=== PATIENT | female | born 1980 | race Caucasian/White ===

== ENCOUNTER 2019-06-28 11:06 | Inpatient (IN) | payer OTHER, SELFPAY | END 2019-06-30 13:10 | disposition home or self-care (01) | DRG 195 | PROVIDERS: Admitting Provider Internal Medicine; Emergency Provider Emergency Medicine; PCP Family Medicine; Visit Provider Internal Medicine | DX: J18.9 Pneumonia, unspecified organism (principal); T78.40XA Allergy, unspecified, initial encounter; L50.9 Urticaria, unspecified; E11.65 Type 2 diabetes mellitus with hyperglycemia; T38.0X5A Adverse effect of glucocorticoids and synthetic analogues, initial encounter; G47.00 Insomnia, unspecified; Z87.891 Personal history of nicotine dependence | CPT/HCPCS: 36415; 71046; 80048; 85025; 85610; 85730; 93005; 94640; 96361; 96365; 96372; 96374; 96375; 96376; 99285; A9270; G0378; J1200; J1650; J1956; J2930; J7120 ==

== ENCOUNTER → 2020-12-02 13:24 | Outpatient (CLI) | payer OTHER, SELFPAY ==
--- NOTE | ~2020-12-02 | MM_ITS ---
EXAMINATION: MM screening [facility] BI w alma HISTORY: Screening mammogram TECHNIQUE: Craniocaudal and mediolateral oblique 3-D tomosynthesis images were obtained and synthetic 2-D images were generated. CAD analysis was submitted and interpreted. COMPARISON: 07/29/2019 BREAST PARENCHYMAL COMPOSITION: The breasts are heterogeneously dense, which may obscure small masses . FINDINGS: There is no evidence of suspicious mass, calcification, or architectural distortion to sugg est malignancy in either breast. There has been no suspicious interval change. IMPRESSION: 1. No mammographic evidence of malignancy. 2. Recommend routine screening mammography in one year. BI-RADS Category 1: Negative Reviewed, dictated and finalized at location A.
== END ==
PROVIDERS: Visit Provider Obstetrics & Gynecology
DX: Z12.31 Encounter for screening mammogram for malignant neoplasm of breast (principal)
CPT/HCPCS: 77063; 77067

== ENCOUNTER 2021-10-05 08:49 | Emergency (ER) | payer OTHER, SELFPAY ==
[2021-10-05 08:56] VITALS: BP 139/87; PULSE 91; RESP 16; TEMP 37.7; O2SAT 99
--- NOTE | 2021-10-05 09:21 | ED.URI ---
HPI - URI/Sore Throat General Chief Complaint: Upper Respiratory Infection Stated Complaint: Cough/Chest Congestion Source: patient and RN notes reviewed History of Present Illness HPI Narrative: This is a 41-year-old female who presented to urgent care with complaints of a persistent cough, headache, nasal pressure, chest congestion that developed approximately 2 weeks ago. Patient notes that she has previously had a diagnosis of bronchitis and was given antibiotics with improvement. Today she is here to get tested for Covid. Patient negative for Covid she will be treated for bronchitis. The patient denies SOB, CP, palpitation, extremity numbness, lightheadedness, dizziness, constipation, diarrhea, chills, or fever. Related Data Home Medications Medication Instructions Recorded Confirmed estradiol-norethindrone acet 1 1 tablet PO DAILY 11/04/19 10/05/21 mg-0.5 mg tablet vortioxetine 5 mg tablet 5 mg PO DAILY 11/04/19 10/05/21 fexofenadine [Allergy Relief 180 mg PO DAILY 10/05/21 10/05/21 (fexofenadine)] Allergies Allergy/AdvReac Type Severity Reaction Status Date / Time Influenza Virus Vaccines Allergy Severe DIFFICULTY Verified 10/05/21 09:22 BREATHING Review of Systems Review of Systems: A 14 organ system Review of Systems was performed and pertinent positives included in the HPI, otherwise remaining ROS is negative. REPLACED BY [facility] Family History Family History Father Family history of emphysema Family history of mental disorder Family history of alcoholism Family history of arthritis Family history of chronic obstructive pulmonary disease Family history of atrial fibrillation Mother Family history of osteoporosis Family history of migraine headaches Hypertension Grandparent Cerebrovascular accident Family history of malignant neoplasm Social History Social History Smoking status: Former smoker Alcohol intake: current Exam Narrative: GENERAL: This is a well-nourished, well-developed patient, in no apparent distress. HEAD: normocephalic, atraumatic. EYES: PERRL. Sclera clear/white. Vision is grossly intact. EARS: External ears normal, auditory canals clear and without drainage, TMs normal without perforation. Hearing grossly intact. NOSE: External nose normal with no obvious nasal discharge, nares without redness, no rhinorrhea. THROAT: Mucous membranes moist, posterior pharynx clear. NECK: Neck supple, non-tender without lymphadenopathy, masses or thyromegaly. CARDIOVASCULAR: Regular rate and rhythm without murmurs, gallops, or rubs. RESPIRATORY: Clear to auscultation. Breath sounds equal bilaterally. No wheezes, rales, or rhonchi. GASTROINTESTINAL: Abdomen soft, non-tender, nondistended. Bowel sounds are active. No hepato-splenomegaly, or palpable masses. No guarding. SKIN: warm, intact with no suspicious lesions or rash, good texture and turgor. NEURO: awake, alert, and oriented to person, place and time. There were no obvious focal neurologic abnormalities. Steady gait EXTREMITIES: Normal range of motion. No edema. No calf tenderness. Negative Homans sign bilaterally. BACK: Nontender without deformity or crepitance. No flank tenderness. Course Course Emergency Course: Patient was discharged with Augmentin x10 days, Tessalon Perles, guaifenesin and Claritin with albuterol inhaler. Level of Care: Express Care Visit Vital Signs Vital signs: Vital Signs Temperature 99.9 F H 10/05/21 08:56 Pulse Rate 91 10/05/21 08:56 Respiratory Rate 16 10/05/21 08:56 Blood Pressure 139/87 10/05/21 08:56 Pulse Oximetry 99 10/05/21 08:56 Temperature 99.9 F H 10/05/21 08:56 Pulse Rate 91 10/05/21 08:56 Respiratory Rate 16 10/05/21 08:56 Blood Pressure 139/87 10/05/21 08:56 Pulse Oximetry 99 10/05/21 08:56 MDM - URI/Sore Throat Differential Diagnosi
== END 2021-10-05 09:45 | disposition home or self-care (01) ==
PROVIDERS: Emergency Provider Nurse Practitioner
DX: J40 Bronchitis, not specified as acute or chronic (principal); Z20.822 Contact with and (suspected) exposure to COVID-19; Z87.891 Personal history of nicotine dependence
CPT/HCPCS: 87426; 99213; C9803; G0463

== ENCOUNTER → 2022-06-06 12:28 | Outpatient (CLI) | payer OTHER, SELFPAY ==
--- NOTE | ~2022-06-06 | MM_ITS ---
EXAMINATION: MM screening [facility] BI w alma HISTORY: Screening mammogram TECHNIQUE: Craniocaudal and mediolateral oblique 3-D tomosynthesis images were obtained and synthetic 2-D images were generated. CAD analysis was submitted and interpreted. COMPARISON: 12/02/2020, 07/29/2019 BREAST PARENCHYMAL COMPOSITION: The breasts are heterogeneously dense, which may obscure small masses . FINDINGS: No suspicious mass, calcification, or architectural distortion are identified in either natacha ast to suggest malignancy. There has been no suspicious interval change. IMPRESSION: 1. No mammographic evidence of malignancy. 2. Recommend routine screening mammography in one year. BI-RADS Category 1: Negative Reviewed, dictated and finalized at location A.
== END ==
PROVIDERS: PCP Family Medicine Sports Medicine; Visit Provider Obstetrics & Gynecology
DX: Z12.31 Encounter for screening mammogram for malignant neoplasm of breast (principal)
CPT/HCPCS: 77063; 77067

== ENCOUNTER 2022-06-08 08:12 | Emergency (ER) | payer OTHER, SELFPAY ==
[2022-06-08 08:25] VITALS: BP 141/86; PULSE 74; RESP 20; TEMP 37.2; O2SAT 99
--- NOTE | 2022-06-08 08:26 | ED.URI ---
HPI - URI/Sore Throat General Chief Complaint: Upper Respiratory Infection Stated Complaint: Sore Throat,Multiple Complaints Time Seen by Provider: 06/08/22 08:20 Source: patient, RN notes reviewed and old records reviewed Mode of arrival: ambulatory Limitations: no limitations History of Present Illness HPI Narrative: 42-year-old female presents to the [facility] with complaints of sore throat, cough, sinus congestion for 2 weeks. Has taken allergy medication and Benadryl at night with minimal relief. Reports is home sick as well. Denies fevers. No chest pain or abdominal pain. Related Data Home Medications Medication Instructions Recorded Confirmed estradiol-norethindrone acet 1 1 tablet PO DAILY 11/04/19 10/05/21 mg-0.5 mg tablet vortioxetine 5 mg tablet 5 mg PO DAILY 11/04/19 10/05/21 (Trintellix) fexofenadine 180 mg tablet 180 mg PO DAILY 10/05/21 10/05/21 (Allergy Relief (fexofenadine)) vortioxetine 10 mg tablet mg 06/08/22 (Trintellix) Allergies Allergy/AdvReac Type Severity Reaction Status Date / Time Influenza Virus Vaccines Allergy Severe DIFFICULTY Verified 10/05/21 09:22 BREATHING Review of Systems Review of Systems: All systems reviewed & are unremarkable except as noted in HPI and below Constitutional: Constitutional: Reports no additional constitutional complaints, Denies chills and Denies fever(s) Eyes: Eyes: Reports no additional eye complaints ENT: Reports as per HPI Cardiovascular: Cardiovascular: Reports no additional cardiovascular complaints Respiratory: Respiratory: Reports as per HPI, Reports chest congestion, Reports cough, Denies dyspnea and Denies wheezing Gastrointestinal: Gastrointestinal: Reports no additional gastrointestinal complaints Musculoskeletal: Musculoskeletal: Reports no additional musculoskeletal complaints Integumentary/Breasts: Skin/Breast: Reports system reviewed and no additional complaints, except as docu Neurologic: Reports system reviewed and no additional complaints, except as documented Psychiatric: Psychiatric: Reports no additional psychiatric complaints Allergic/Immunologic: Allergic/Immunologic: Reports no additional allergic/immunologic complaints [facility] Family History Family History Father Family history of emphysema Family history of mental disorder Family history of alcoholism Family history of arthritis Family history of chronic obstructive pulmonary disease Family history of atrial fibrillation Mother Family history of osteoporosis Family history of migraine headaches Hypertension Grandparent Cerebrovascular accident Family history of malignant neoplasm Social History Social History Smoking status: Former smoker Alcohol intake: current Comments At the time of my signature, I reviewed and agree with the nursing past medical, surgical, social, and family history. There is no relevant family history pertinent to the patient complaint. Exam Const: General: healthy appearing, no acute distress, alert and well nourished Nutritional Appearance: well nourished Orientation/consciousness: patient oriented x3 Limitations: no limitations HENMT: Head: normal to inspection Ears: external ears normal, TM's normal bilaterally and EAC's normal Face/Nose/Sinus: Normal external nose present and Normal nares present Face and sinus: normal facial exam Mouth: Yes Normal oral and palatal mucosa present, Yes lip normal and Yes moist mucous membranes Throat: posterior oropharynx normal and uvula midline Eyes: General: appearance normal, both eyes and all related structures Conjunctivae: conjunctivae normal Pupils: Equal, round and reactive pupils present Neck: Neck: normal visual inspection, no lymphadenopathy and no meningeal signs Chest: Chest palpation & inspection: normal inspection of the chest R
== END 2022-06-08 08:30 | disposition home or self-care (01) ==
PROVIDERS: Emergency Provider Nurse Practitioner; PCP Family Medicine Sports Medicine
DX: J40 Bronchitis, not specified as acute or chronic (principal); J01.40 Acute pansinusitis, unspecified; Z87.891 Personal history of nicotine dependence
CPT/HCPCS: 99213; G0463

== ENCOUNTER 2022-09-14 14:09 | Emergency (ER) | payer OTHER, SELFPAY ==
--- NOTE | 2022-09-14 14:12 | ED.URI ---
HPI - URI/Sore Throat General Chief Complaint: Upper Respiratory Infection Stated Complaint: flu like symptoms Time Seen by Provider: 09/14/22 14:12 Source: patient Mode of arrival: ambulatory Limitations: no limitations History of Present Illness HPI Narrative: Sarah is a 42-year-old female patient presenting to the clinic today with complaints of flu-like symptoms. She reports she has had sore throat, body aches, chills, and low-grade fever x1 day. Reports her symptoms began yesterday. She states her temperature was a 100.3? F at home today. She is concerned that she may have strep or flu. MD elicited complaint: sore throat and nasal congestion Related Data Home Medications Medication Instructions Recorded Confirmed estradiol-norethindrone acet 1 1 tablet PO DAILY 11/04/19 09/14/22 mg-0.5 mg tablet vortioxetine 10 mg tablet 10 mg PO DAILY 06/08/22 09/14/22 (Trintellix) Allergies Allergy/AdvReac Type Severity Reaction Status Date / Time Influenza Virus Vaccines Allergy Severe DIFFICULTY Verified 09/14/22 14:16 BREATHING Review of Systems Review of Systems: Pertinent positives per HPI. Patient denies any rash, headache, visual changes, dizziness, cough, shortness of breath, chest pain, palpitations, nausea, vomiting, diarrhea, constipation, abdominal pain, or any urinary issues. PMFSH Family History Family History Father Family history of emphysema Family history of mental disorder Family history of alcoholism Family history of arthritis Family history of chronic obstructive pulmonary disease Family history of atrial fibrillation Mother Family history of osteoporosis Family history of migraine headaches Hypertension Grandparent Cerebrovascular accident Family history of malignant neoplasm Social History Social History Smoking status: Former smoker Alcohol intake: current Comments At the time of my signature, I reviewed and agree with the nursing past medical, surgical, social, and family history. There is no relevant family history pertinent to the patient complaint. Exam Narrative: General: Well-developed, well nourished, in no apparent distress Head: Normocephalic, atraumatic Eyes: Pupils equally round and reactive to light bilaterally, EOM intact, sclera and conjunctive clear, no discharge, lids normal Ears: TMs intact and clear, ear canals clear, no drainage, grossly hearing normal. Nose: Nares patent, clear nasal discharge, no inflammation, no sinus tenderness. Mouth: Oral pharynx without lesions or masses, good dentition, MMM. Oropharynx red with bilateral tonsillar swelling and white exudate Neck: Supple, trachea midline, mild enlargement of anterior cervical nodes, no thyroid masses or goiter palpable. Cardio: Regular rate and rhythm, s1 and s2 normal, no murmur appreciated. Resp: Clear to auscultation bilaterally, no rhonchi, rales, wheezing or rubs Course Course Emergency Course: Portions of this record may have been created with voice recognition software. Level of Care: Express Care Visit Vital Signs Vital signs: Vital Signs Temperature 36.7 C 09/14/22 14:22 Pulse Rate 111 H 09/14/22 14:22 Respiratory Rate 18 09/14/22 14:22 Blood Pressure 132/86 09/14/22 14:22 Pulse Oximetry 98 09/14/22 14:22 Oxygen Delivery Room Air 09/14/22 14:22 Temperature 36.7 C 09/14/22 14:22 Pulse Rate 111 H 09/14/22 14:22 Respiratory Rate 18 09/14/22 14:22 Blood Pressure 132/86 09/14/22 14:22 Pulse Oximetry 98 09/14/22 14:22 Oxygen Delivery Room Air 09/14/22 14:22 Vital signs reviewed MDM - URI/Sore Throat MDM Narrative Medical decision making narrative: At the time of visit the patient is resting comfortably on the exam table. Influenza and strep testing was performed and the strep screen was positive.
[2022-09-14 14:22] VITALS: BP 132/86; PULSE 111; RESP 18; TEMP 36.7; O2SAT 98
--- NOTE | 2022-09-14 14:27 | ED.URI ---
HPI - URI/Sore Throat General Chief Complaint: Upper Respiratory Infection Stated Complaint: flu like symptoms Time Seen by Provider: 09/14/22 14:12 Source: patient Mode of arrival: ambulatory Limitations: no limitations History of Present Illness HPI Narrative: Sarah is a Related Data Home Medications Medication Instructions Recorded Confirmed estradiol-norethindrone acet 1 1 tablet PO DAILY 11/04/19 10/05/21 mg-0.5 mg tablet vortioxetine 10 mg tablet mg 06/08/22 (Trintellix) Allergies Allergy/AdvReac Type Severity Reaction Status Date / Time Influenza Virus Vaccines Allergy Severe DIFFICULTY Verified 09/14/22 14:16 BREATHING PMFSH Family History Family History Father Family history of emphysema Family history of mental disorder Family history of alcoholism Family history of arthritis Family history of chronic obstructive pulmonary disease Family history of atrial fibrillation Mother Family history of osteoporosis Family history of migraine headaches Hypertension Grandparent Cerebrovascular accident Family history of malignant neoplasm Social History Social History Smoking status: Former smoker Alcohol intake: current Course Vital Signs Vital signs: Vital Signs Temperature 36.7 C 09/14/22 14:22 Pulse Rate 111 H 09/14/22 14:22 Respiratory Rate 18 09/14/22 14:22 Blood Pressure 132/86 09/14/22 14:22 Pulse Oximetry 98 09/14/22 14:22 Oxygen Delivery Room Air 09/14/22 14:22 Temperature 36.7 C 09/14/22 14:22 Pulse Rate 111 H 09/14/22 14:22 Respiratory Rate 18 09/14/22 14:22 Blood Pressure 132/86 09/14/22 14:22 Pulse Oximetry 98 09/14/22 14:22 Oxygen Delivery Room Air 09/14/22 14:22 Discharge Plan Discharge Patient Disposition: Home, Self-Care Condition: Stable Instructions: Antibiotic Form Prescriptions: No Action loratadine [Claritin] 10 mg tablet 10 mg PO DAILY PRN (Reason: allergy symptoms) Qty: 10 0RF Trintellix 10 mg tablet 10 mg PO DAILY estradiol-norethindrone acet 1-0.5 mg tablet 1 tablet PO DAILY Follow-up/Referrals: Bijal,Alannah Kelsey MD [Primary Care Provider] -
== END 2022-09-14 14:39 | disposition home or self-care (01) ==
PROVIDERS: Emergency Provider Nurse Practitioner Family; PCP Family Medicine Sports Medicine
DX: J02.0 Streptococcal pharyngitis (principal); Z87.891 Personal history of nicotine dependence
CPT/HCPCS: 87804; 87880; 99213; G0463

== ENCOUNTER 2022-10-25 09:00 | Outpatient (NON) | payer OTHER, SELFPAY | END 2022-10-25 09:01 | disposition home or self-care (01) | LOC: ANHLAB 10-26 08:22 | PROVIDERS: PCP Family Medicine Sports Medicine; Visit Provider Obstetrics & Gynecology | DX: N95.0 Postmenopausal bleeding (principal) | CPT/HCPCS: 88305 ==

== ENCOUNTER 2022-10-25 10:18 | Day surgery (SDC) | payer OTHER, SELFPAY ==
[2022-10-16 08:51] VITALS: BMI 30.2
--- NOTE | 2022-10-24 07:54 | P.HP_ITS ---
H&P: HPI History of Present Illness Date/Time: 10/24/22 07:54 Chief Complaint: postmenopausal bleeding Narrative: is a 42-year-old female who is postmenopausal for some time. She takes Activella she did have some bleeding. She underwent ultrasound which showed the uterus to be greater than 4mm she will undergo hysteroscopy dilatation curettage. Risks and benefits reviewed in great detail. She received the AC handout entitled hysteroscopy as well as dilatation curettage respectively. She had all questions answered and asked to proceed [facility] Family History Family History Father Family history of emphysema Family history of mental disorder Family history of alcoholism Family history of arthritis Family history of chronic obstructive pulmonary disease Family history of atrial fibrillation Mother Family history of osteoporosis Family history of migraine headaches Hypertension Grandparent Cerebrovascular accident Family history of malignant neoplasm Social History Social History Years smoked: 24 Smoking status: Former smoker Tobacco type: cigarettes Second hand tobacco smoke exposure: No Smoking end date: 06/20/19 Alcohol intake: current Alcohol use details: socially Substance use: never Substance use type: does not use Living arrangements: with family Spiritual care concerns: No Meds Home Medications and Allergies Home Medications Medication Instructions Recorded Confirmed Type estradiol-norethindrone acet 1 1 tablet PO DAILY 11/04/19 10/16/22 History mg-0.5 mg tablet loratadine 10 mg tablet (Claritin) 10 mg PO DAILY PRN allergy 10/05/21 10/16/22 Rx symptoms #10 tabs vortioxetine 10 mg tablet 10 mg PO DAILY 06/08/22 10/16/22 History (Trintellix) Allergies Allergy/AdvReac Type Severity Reaction Status Date / Time Influenza Virus Vaccines Allergy Severe DIFFICULTY Verified 10/16/22 08:54 BREATHING Exam Const: General: cooperative, healthy appearing and comfortable Nutritional Appearance: average body habitus Orientation/consciousness: oriented to person, oriented to place and oriented to time HENMT: Head: normal to inspection Resp: Effort & Inspection: normal respiratory effort Cardio: Rate: regular rate Rhythm: regular rhythm Heart sounds: S1 normal heart sound present and S2 normal heart sound present GI: Inspection: normal to inspection : External Female Exam: normal external appearance Speculum Exam - Vagina: normal appearance of the vagina Speculum Exam - Cervix: normal appearance of the cervix Bimanual exam- vagina & uterus: uterine size normal Bimanual Exam- Adnexa, other: normal adnexae Assessment and Plan Assessment and plan (1) Postmenopausal bleeding: Code(s): N95.0 - Postmenopausal bleeding Status: Acute Plan hysteroscopy/dilatation and curettage
--- NOTE | 2022-10-25 07:42 | WPDHPUPDATE1 ---
History and Physical Update Update Date/Time: 10/25/22 07:42 History and Physical has been reviewed, including an updated exam of the patient. There are NO changes in the patient's condition. Risks, benefits, and alternatives have been discussed and questions answered. Patient agrees to proceed with procedure.
[2022-10-25] MEDS: ACETAMINOPHEN 500 MG TABLET 1000 MG PO (10:54)
[2022-10-25 10:55] VITALS: BP 135/93; PULSE 61; RESP 20; TEMP 37.1; O2SAT 100
--- NOTE | 2022-10-25 11:53 | P.PNAN_ITS ---
Anes - Initial Pre Proc Eval Procedure: Operation Date: 10/25/22 12:00 Proposed Procedures p Hysteroscopy Dilation and Curettage - Gregg Gil MD Date/Time: 10/25/22 11:53 Surgeon: Gregg Gil MD Pre Op Diagnosis: Irregular Vaginal Bleeding Patient Data Age: 42 Gender: F Height: 1.68 m Weight: 85.3 kg Last Vital Signs Temp 37.1 C 10/25/22 10:55 Pulse 61 10/25/22 10:55 Resp 20 10/25/22 10:55 BP 135/93 H 10/25/22 10:55 Pulse Ox 100 10/25/22 10:55 O2 Del Method Room Air 10/25/22 10:55 Allergies Allergy/AdvReac Type Severity Reaction Status Date / Time No Known Allergies Allergy Verified 10/25/22 10:52 Home Medications Medication Instructions Recorded Confirmed Type estradiol-norethindrone acet 1 1 tablet PO DAILY 11/04/19 10/16/22 History mg-0.5 mg tablet loratadine 10 mg tablet (Claritin) 10 mg PO DAILY PRN allergy 10/05/21 10/16/22 Rx symptoms #10 tabs vortioxetine 10 mg tablet 10 mg PO DAILY 06/08/22 10/16/22 History (Trintellix) hydrocodone 5 mg-acetaminophen 325 1 tablet PO Q4H PRN pain #14 tabs 10/25/22 Rx mg tablet Patient hx anesthesia problems: none Family hx anesthesia problems: none Results Review: All pre-operative results and documents have been reviewed as part of the pre- operative evaluation. [facility] Past Medical History Medical History (Updated 10/25/22 @ 11:51 by Floresita Trejo CRNA) Anxiety Depression Family History Family History Father Family history of emphysema Family history of mental disorder Family history of alcoholism Family history of arthritis Family history of chronic obstructive pulmonary disease Family history of atrial fibrillation Mother Family history of osteoporosis Family history of migraine headaches Hypertension Grandparent Cerebrovascular accident Family history of malignant neoplasm Social History Social History Years smoked: 24 Smoking status: Former smoker Tobacco type: cigarettes Second hand tobacco smoke exposure: No Smoking end date: 06/20/19 Alcohol intake: current Alcohol use details: socially Substance use: never Substance use type: does not use Living arrangements: with family Spiritual care concerns: No Anes - Eval Final PreProcedure Day of Procedure 10/25/22 11:53 Patient weight: obese Heart: regular rate and rhythm Lungs: clear to auscultation Airway: Mallampati scale class II Neurological: alert and oriented Last oral intake: >/= 8 hours ASA classification: II Emergent: no Anesthetic plan: proceed Anesthesia type and monitoring: general GIVS and standard monitoring Results Review: All pre-operative results and documents have been reviewed as part of the pre- operative evaluation. Informed Consent: The patient's anesthetic plan and its attendant risks and benefits were discussed with the patient/family/POA. Questions were solicited and answers provided to the satisfaction of the patient/family/POA.
[2022-10-25] MEDS: LACTATED RINGERS 1,000 ML 30 ML IV CONT (11:54)
[2022-10-25] MEDS: LIDOCAINE HCL 1% LOCAL INJ 20 ML VIAL 10 ML INFILTRATE (12:10)
--- NOTE | 2022-10-25 12:13 | W.PM.PROC2 ---
Procedure Note - Detailed Date of Procedure 10/25/22 Pre-op Diagnosis Irregular Vaginal Bleeding Post-op Diagnosis Same Procedure Performed Hysteroscopy / dilatation curettage Surgeon Gregg Gil MD Anesthesia MAC and Local Indications this is a 42-year-old female postmenopausal had irregular bleeding Findings benign irregular appearing endometrial tissue with no evidence of precancerous or cancerous look. Normal-appearing fallopian tube ostia bilaterally Description of Procedure patient was prepped draped in the normal sterile fashion placed in dorsal lithotomy position. Under excellent IV sedation weighted speculum placed in posterior fornix vagina. Anterior lip of the cervix grasped with single-tooth tenaculum. 2.5cc 1% xylocaine anesthesia placed at 2, 4, 8, 10:00 a.m. of the cervix. Uterus noted be retroverted and sounded to7.5cm. Serial dilatation with fragmented dilators performed followed by passage of the 5mm visualizing hysteroscope using normal saline as visualizing medium. Some irregular tissue and a small clot was seen but no suspicious looking endometrium. Each fallopian tube os appeared within normal limits. The hysteroscope was withdrawn and the uterus scraped over the entire 360? removing a moderate amount of tissue. When a good grating sound was heard no further tissue was able to be removed the procedure was terminated the instruments were withdrawn. The patient tolerated the procedure well and went to recovery in satisfactory condition. All sponge, needle, instrument counts were correct. There were no immediate complications Estimated Blood Loss 5 Drains No Packing No Pathology Yes Complications No immediate complications Condition Stable Disposition PACU
[2022-10-25 12:18] VITALS: BP 121/90; PULSE 68; RESP 16; O2SAT 97
--- NOTE | 2022-10-25 12:31 | SUR.PHASEII ---
PT AWAKE AND ALERT. STATES MILD CRAMPING, TOLERABLE. PERIPAD DRY. PT TALKATIVE WITH SPOUSE AND DRINKING WATER.
[2022-10-25 12:40] VITALS: BP 114/93; PULSE 59; RESP 16; O2SAT 100
[2022-10-25 13:00] VITALS: BP 115/74; PULSE 60; RESP 16; O2SAT 100
--- NOTE | 2022-10-25 13:15 | SUR.PHASEII ---
1300; INSTRUCTIONS GIVEN TO PT AND SPOUSE. PT STATES SHE DOESN'T WANT THE PRESCRIPTION FOR HYDROCODONE/ACETAMINOPHEN. SHE ASKED THAT I SHRED THE SCRIPT.
--- NOTE | 2022-10-25 13:30 | WPDANESPN ---
Anes - Prog Note Post-Op Date/Time: 10/25/22 13:30 Cardiovascular status: normal Respiratory status: normal Airway patency: baseline Mental status: baseline Post-Op hydration status: normal Vital Signs: Last Vital Signs Temp 37.1 C 10/25/22 10:55 Pulse 60 10/25/22 13:00 Resp 16 10/25/22 13:00 BP 115/74 10/25/22 13:00 Pulse Ox 100 10/25/22 13:00 O2 Del Method Room Air 10/25/22 13:00 Pain Score (VAS): 0 I/O: Intake & Output 10/24/22 10/25/22 10/25/22 23:59 07:59 15:59 Intake Total 150 Balance 150 Post-procedural complaints: none Patient Feedback: Patient satisfied with anesthetic care. Other Findings: Patient vital signs back to baseline. Patient denies nausea and vomiting. Patient's pain under control. Patient OK for discharge.
== END 2022-10-25 13:05 | disposition home or self-care (01) ==
PROVIDERS: PCP Family Medicine Sports Medicine; Visit Provider Obstetrics & Gynecology
PROC: 0U5B8ZZ Destruction of Endometrium, Via Natural or Artificial Opening Endoscopic (ICD-10-PCS; CPT 58563; principal; 2022-10-25 12:00)
DX: N95.0 Postmenopausal bleeding (principal)
CPT/HCPCS: 58558

== ENCOUNTER 2023-07-11 19:10 | Emergency (ER) | payer OTHER, SELFPAY ==
--- NOTE | 2023-07-11 19:26 | ED.GENADULT ---
HPI - General Adult General Chief complaint: Upper Respiratory Infection Stated complaint: very tired,cough,hard to breathe Time Seen by Provider: 07/11/23 19:27 Source: patient, RN notes reviewed and old records reviewed Mode of arrival: ambulatory Limitations: no limitations History of Present Illness HPI narrative: 43-year-old female presents to the [facility] with complaints of cough, congestion, tiredness since Saturday, 3 days. Patient reports that she took Sudafed last night and has taken she taken a Mucinex this afternoon. Onset (ago): day(s) (3) Treatments prior to arrival: other (Cold meds) Related Data Home Medications Medication Instructions Recorded Confirmed estradiol-norethindrone acet 1 1 tablet PO DAILY 11/04/19 07/11/23 mg-0.5 mg tablet vortioxetine 10 mg tablet 10 mg PO DAILY 06/08/22 07/11/23 (Trintellix) Allergies Allergy/AdvReac Type Severity Reaction Status Date / Time No Known Allergies Allergy Verified 10/25/22 10:52 Review of Systems Review of Systems: All systems reviewed & are unremarkable except as noted in HPI and below Constitutional: Constitutional: Reports no additional constitutional complaints Eyes: Eyes: Reports no additional eye complaints ENT: Reports as per HPI Cardiovascular: Cardiovascular: Reports no additional cardiovascular complaints, Denies chest pain and Denies dyspnea Respiratory: Respiratory: Reports as per HPI, Denies chest congestion, Reports cough and Denies dyspnea Gastrointestinal: Gastrointestinal: Reports no additional gastrointestinal complaints, Denies abdominal pain, Denies nausea and Denies vomiting Musculoskeletal: Musculoskeletal: Reports no additional musculoskeletal complaints Integumentary/Breasts: Skin/Breast: Reports system reviewed and no additional complaints, except as docu Neurologic: Reports system reviewed and no additional complaints, except as documented Psychiatric: Psychiatric: Reports no additional psychiatric complaints Allergic/Immunologic: Allergic/Immunologic: Reports no additional allergic/immunologic complaints PMFSH Past Medical History Medical History Anxiety Depression Family History Family History Father Family history of emphysema Family history of mental disorder Family history of alcoholism Family history of arthritis Family history of chronic obstructive pulmonary disease Family history of atrial fibrillation Mother Family history of osteoporosis Family history of migraine headaches Hypertension Grandparent Cerebrovascular accident Family history of malignant neoplasm Social History Social History Years smoked: 24 Smoking status: Former smoker Tobacco type: cigarettes Second hand tobacco smoke exposure: No Smoking end date: 06/20/19 Alcohol intake: current Alcohol use details: socially Substance use: never Substance use type: does not use Living arrangements: with family Spiritual care concerns: No Comments At the time of my signature, I reviewed and agree with the nursing past medical, surgical, social, and family history. There is no relevant family history pertinent to the patient complaint. Exam Const: General: cooperative, healthy appearing, comfortable, no acute distress, well developed, alert and well nourished Nutritional Appearance: well nourished Orientation/consciousness: patient oriented x3 Limitations: no limitations HENMT: Head: normal to inspection Ears: hearing grossly normal bilaterally, external ears normal, TM's normal bilaterally, EAC's normal, mastoids normal and no periauricular adenopathy Face/Nose/Sinus: Normal external nose present, Normal nares present, Normal nasal mucous membranes and turbinates present, normal facial exam and face symmetric Face and sinus: normal facia
[2023-07-11 19:27] VITALS: BP 126/84; PULSE 85; RESP 16; TEMP 36.3; O2SAT 100
== END 2023-07-11 19:41 | disposition home or self-care (01) ==
PROVIDERS: Emergency Provider Nurse Practitioner; PCP Family Medicine Sports Medicine
DX: J06.9 Acute upper respiratory infection, unspecified (principal); Z20.822 Contact with and (suspected) exposure to COVID-19; Z87.891 Personal history of nicotine dependence; F41.9 Anxiety disorder, unspecified; F32.A Depression, unspecified
CPT/HCPCS: 87081; 87426; 87880; 99213; C9803; G0463

== ENCOUNTER 2023-11-13 10:04 | Outpatient (CLI) | payer OTHER, SELFPAY ==
--- NOTE | ~2023-11-13 | MM_ITS ---
EXAMINATION: MM screening alessandro BI w alma HISTORY: Screening mammogram TECHNIQUE: Craniocaudal and mediolateral oblique 3-D tomosynthesis images were obtained and synthetic 2-D images were generated. CAD analysis was submitted and interpreted. COMPARISON: 06/06/2022, 12/02/2020, 07/29/2019 bilateral screening mammogram examinations BREAST PARENCHYMAL COMPOSITION: The breasts are heterogeneously dense, which may obscure small masses . FINDINGS: There is no evidence of suspicious mass, calcification, or architectural distortion to sugg est malignancy in either breast. There has been no suspicious interval change. IMPRESSION: 1. No mammographic evidence of malignancy. 2. Recommend routine screening mammography in one year. BI-RADS Category 1: Negative Reviewed, dictated and finalized at location A.
== END 2023-11-13 10:05 ==
PROVIDERS: PCP Obstetrics & Gynecology; Visit Provider Obstetrics & Gynecology
DX: Z12.31 Encounter for screening mammogram for malignant neoplasm of breast (principal)
CPT/HCPCS: 77063; 77067

== ENCOUNTER 2023-12-23 15:39 | Emergency (ER) | payer OTHER, SELFPAY ==
[2023-12-23 15:55] VITALS: BP 141/89; PULSE 63; RESP 18; TEMP 36.5; O2SAT 100
--- NOTE | 2023-12-23 16:02 | ED.URI ---
HPI - URI/Sore Throat General Chief Complaint: Upper Respiratory Infection Stated Complaint: Sore Throat, Fatigue Time Seen by Provider: 12/23/23 16:21 Source: patient and RN notes reviewed Mode of arrival: ambulatory Limitations: no limitations History of Present Illness HPI Narrative: 43-year-old female presents with concern for sore throat, fatigue, diarrhea, cough. Reports she has taken dull some with some relief. Reports she was exposed to similar symptoms over the weekend. She denies fever. MD elicited complaint: cough and sore throat Related Data Home Medications Medication Instructions Recorded Confirmed estradiol-norethindrone acet 1 1 tablet PO DAILY 11/04/19 12/23/23 mg-0.5 mg tablet vortioxetine 10 mg tablet 10 mg PO DAILY 06/08/22 12/23/23 (Trintellix) Allergies Allergy/AdvReac Type Severity Reaction Status Date / Time No Known Allergies Allergy Verified 12/23/23 16:01 Review of Systems Review of Systems: CONSTITUTIONAL: Denies malaise, fatigue. Denies chills, sweats, or fever. EYES: Denies visual changes, redness, or discharge. ENT: Denies rhinorrhea, congestion, sinus pain, otalgia. Reports sore throat. CARDIOVASCULAR: Denies chest pain, palpitations, or edema. RESPIRATORY: Reports cough. Denies dyspnea. GASTROINTESTINAL: Denies abdominal pain, nausea, vomiting. Reports diarrhea SKIN: Denies rash or itching. MUSCULOSKELETAL: Denies myalgia. NEUROLOGIC: Denies headache. All systems reviewed & are unremarkable except as noted in HPI and below PMFSH Past Medical History Medical History Anxiety Depression Family History Family History Father Family history of emphysema Family history of mental disorder Family history of alcoholism Family history of arthritis Family history of chronic obstructive pulmonary disease Family history of atrial fibrillation Mother Family history of osteoporosis Family history of migraine headaches Hypertension Grandparent Cerebrovascular accident Family history of malignant neoplasm Social History Social History Years smoked: 24 Smoking status: Former smoker Tobacco type: cigarettes Second hand tobacco smoke exposure: No Smoking end date: 06/20/19 Alcohol intake: current Alcohol use details: socially Substance use: never Substance use type: does not use Living arrangements: with family Spiritual care concerns: No Comments At time of signature, agree with nursing past medical, surgical, social and family history. There is no relevant family history pertinent to the presenting complaint Exam Narrative: GENERAL: Well-appearing, well-nourished, and in no acute distress. HEAD: Normocephalic EYES: PERRLA, conjunctivae clear ENT: Nares clear, turbinates edematous and erythematous, clear discharge. Mucous membranes moist. TM pearly chapman with sharp light reflex bilaterally; no tragal tenderness. Oropharynx not erythematous without lesions. Tonsils not enlarged and without exudate, no drooling, no hoarseness, no trismus, uvula midline. NECK: Supple. No lymphadenopathy CHEST: Clear to auscultation, breath sounds equal. No wheezing, rhonchi, rales, or stridor. No respiratory distress, speaks in full sentences. HEART: Regular rate and rhythm. No murmur heard. SKIN: Warm, dry, no rash. NEURO: Alert and oriented x3. PSYCH: Normal mood and affect Course Course Emergency Course: Patient is aware of diagnosis, understands and agrees to treatment plan. Anticipatory guidance given. Patient agrees to follow-up as directed and is aware of reasons to seek care at the emergency department. Portions of this record may have been created with voice recognition software Level of Care: Express Care Visit Vital Signs Vital signs: Vital Signs Temperature 97.7 F
== END 2023-12-23 16:32 | disposition home or self-care (01) ==
PROVIDERS: Emergency Provider Nurse Practitioner; PCP Family Medicine Sports Medicine
DX: J06.9 Acute upper respiratory infection, unspecified (principal); Z20.822 Contact with and (suspected) exposure to COVID-19; Z87.891 Personal history of nicotine dependence; F32.A Depression, unspecified
CPT/HCPCS: 87081; 87426; 87804; 87880; 99213; G0463

== ENCOUNTER 2024-04-12 07:19 | Emergency (ER) | payer OTHER, SELFPAY ==
[2024-04-12] VITALS (20 sets, daily range): BP systolic 111–142; BP diastolic 75–90; PULSE 59–85; RESP 10–16; TEMP 36.8; O2SAT 95–100
--- NOTE | ~2024-04-12 | XR_ITS ---
EXAMINATION: XR chest 2V DATE: 04/12/2024 07:49 INDICATION: Chest pain. Epigastric abdominal pain. TECHNIQUE: Frontal and lateral views of the chest were obtained. COMPARISON: Chest 2 views 07/29/2019 FINDINGS: There is no pneumonia, pleural effusion, or pneumothorax. The heart size is normal. There i s mild chronic anterior wedging of multiple mid thoracic vertebral bodies. IMPRESSION: 1. No acute cardiopulmonary disease. Reviewed, dictated and finalized at location E.
--- NOTE | 2024-04-12 07:24 | ECG_ITS ---
Test Date: 2024-04-12 07:37:51 Measurements Intervals [place] Rate: 70 P: 36 NE: 154 QRS: 22 QRSD: 81 T: 49 QT: 373 QTc: 403 Interpretive Statements SINUS RHYTHM No previous ECG available for comparison Electronically Signed On 04-12-2024 13:49:35 CDT by Sami Gaston M.D.
--- NOTE | 2024-04-12 07:33 | ED.CHESTPAIN ---
HPI - Chest Pain General Chief Complaint: Chest Pain Stated Complaint: chest pain, shortness of breath Time Seen by Provider: 04/12/24 07:31 Source: patient Mode of arrival: ambulatory Limitations: no limitations History of Present Illness HPI narrative: Patient presents with pain was initially reported as chest pain versus possible epigastric or upper abdominal pain. Patient notes that is distinctly located under her left breast. She noticed it Saturday morning as she was getting off of work at 6:00 a.m. and it was initially intermittent and worse with taking a deep breath but has since become more constant. Patient that it was a muscle strain initially. 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 Pain is somewhat positional. She denies any cough, fevers, trauma, or recent surgery. Denies anything with this ever happening before. Does not follow with a chronic care nurse, retort operator, social media content specialist. Had been diagnosed with the murmur when she was a pediatric patient as well as at times she was younger but resolved. Her pain makes it difficult to lay on her back on her left side. She had been on hormone therapy from September 2019 until December or January of this year for initial diagnosis of premature menopause but then was taken off of this when it was thought that maybe she was having premature ovarian failure. Her last menstrual period was March 02, 2024. Denies any unilateral or bilateral leg swelling. No hemoptysis. No prior PE or DVT no recent surgery or trauma. No personal history of hypertension hyperlipidemia. Former smoker who quit 5 years ago. No family history of myocardial infarction before the age of 65. No personal history of myocardial infarction, TIA, or CVA. No Personal history of diabetes mellitus. Related Data Home Medications Medication Instructions Recorded Confirmed estradiol-norethindrone acet 1 1 tablet PO DAILY 11/04/19 12/23/23 mg-0.5 mg tablet vortioxetine 10 mg tablet 10 mg PO DAILY 06/08/22 12/23/23 (Trintellix) Allergies Allergy/AdvReac Type Severity Reaction Status Date / Time No Known Allergies Allergy Verified 12/23/23 16:01 [facility] Past Medical History Medical History (Updated 04/13/24 @ 00:00 by Background Dacaron) Anxiety Depression Heart murmur pediatric Resolved asthma pediatric condition Family History Family History Father Family history of emphysema Family history of mental disorder Family history of alcoholism Family history of arthritis Family history of chronic obstructive pulmonary disease Family history of atrial fibrillation Mother Family history of osteoporosis Family history of migraine headaches Hypertension Grandparent Cerebrovascular accident Family history of malignant neoplasm Social History Social History (Updated 04/12/24 @ 08:40 by Sarah Irwin MD) Years smoked: 24 Smoking status: Former smoker Tobacco type: cigarettes Second hand tobacco smoke exposure: No Smoking end date: 06/20/19 Alcohol intake: current Alcohol use details: socially Substance use: never Substance use type: does not use Living arrangements: with family Occupation/Education: occupation 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 HEAD: Normocephalic, atraumatic. EYES: Non injected, non icteric ENT: Nares clear, no rhinorrhea or epistaxis. NECK: Supple. CHEST: Speaking in full sentences. No respiratory distress. Lungs clear to auscultation anteriorly and posteriorly without wheezes or crackles or areas of focal consolidation appreciated. Mild tenderness to palpation at area under left breast. HEART: Regular r
[2024-04-12 07:50] LABS: Basophils Percent Auto 0.4 % (0.2-1.2); Eosinophils Percent Auto 0.4 % (0-4.4); Hematocrit 42.8 % (37.0-47.0); Hemoglobin 14.2 g/dL (12.0-15.0); Immature Granulocyte Absolute 0.03 K/mm3 (0.00-0.031); Immature Granulocyte Percent A 0.5 % (0-0.5); Lymphocytes Absolute Auto 1.66 K/mm3 (0.9-3.2); Mean Corpuscular HGB Conc 33.2 g/dl (32-36); Mean Corpuscular Hemoglobin 32.1 pg (26-34); Mean Corpuscular Volume 96.6 fl (80-100); Mean Platelet Volume 9.8 fl (7.4-10.4); Monocytes Absolute Auto 0.5 K/mm3 (0.1-0.6); Monocytes Percent Auto 9.2 % (2.6-8.5); Neutrophils Absolute Auto 3.3 K/mm3 (1.3-6.7); Neutrophils Percent Auto 59.5 % (45.5-73.1); Platelet Count Result 213 k/mm3 (150-375); Red Blood Count 4.43 M/mm3 (4.2-5.4); Red Cell Distribution Width 12.1 % (11.5-14.5); White Blood Count 5.5 K/mm3 (4.5-10.0)
[2024-04-12 08:00] LABS: Alanine Aminotransferase 25 U/L (6-35); Albumin Level 4.6 g/dL (3.5-5.1); Alkaline Phosphatase 64 U/L (38-126); Anion Gap 7 mmol/L (4-12); Aspartate Amino Transferase 29 U/L (14-36); Bilirubin,Total 0.4 mg/dL (0.2-1.3); Blood Urea Nitrogen 15 mg/dL (7-17); Calcium 8.8 mg/dL (8.4-10.2); Carbon Dioxide 31 mmol/L (22-30); Chloride 100 mmol/L (98-107); Estimated CRCL calculation 70 ml/min; Estimated Glomerular Filt Rate > 60; Glucose 84 mg/dL (65-110); Lipase 91 U/L (23-300); Potassium 3.8 mmol/L (3.4-5.0); Sodium 138 mmol/L (137-145)
[2024-04-12 08:03] LABS: INR 0.9; Prothrombin Time 12.9 Seconds (11.1-14.7)
[2024-04-12 08:04] LABS: Partial Thromboplastin Time 29.6 Seconds (22.3-36.8)
[2024-04-12 08:11] LABS: Troponin I < 0.012 ng/mL (0.000-0.034)
[2024-04-12] MEDS: HYDROcodone/acetaminophen (*CRX) 5-325 MG TABLET 1 TAB PO (08:44)
[2024-04-12 09:06] LABS: D Dimer 0.36 ug/mL (<0.48)
[2024-04-12 09:12] LABS: Influenza A QL RT-PCR Negative (Negative); Influenza B QL RT-PCR Negative (Negative); RSV RNA, RT-PCR Negative (Negative); SARS-CoV-2 RNA PCR Negative (Negative)
[2024-04-12 11:00] LABS: Troponin I < 0.012 ng/mL (0.000-0.034)
== END 2024-04-12 10:53 | disposition home or self-care (01) ==
PROVIDERS: Emergency Provider Student in an Organized Health Care Education/Training Program; PCP Family Medicine Sports Medicine
DX: R07.89 Other chest pain (principal); Z20.822 Contact with and (suspected) exposure to COVID-19; F41.9 Anxiety disorder, unspecified; F32.A Depression, unspecified; Z87.891 Personal history of nicotine dependence; Z79.899 Other long term (current) drug therapy
CPT/HCPCS: 36415; 71046; 80053; 83690; 84484; 85025; 85380; 85610; 85730; 87637; 93005; 99284; A9270

== ENCOUNTER 2024-08-18 08:25 | Emergency (ER) | payer OTHER, SELFPAY ==
--- NOTE | 2024-08-18 08:31 | ED_ITS ---
HPI - URI/Sore Throat General Chief Complaint: Upper Respiratory Infection Stated Complaint: Sinus/Sore Throat Time Seen by Provider: 08/18/24 08:30 Source: patient Mode of arrival: ambulatory Limitations: no limitations History of Present Illness HPI Narrative: Patient is a 44-year-old female who presents with congestion, sinus pressure, headache, sore throat for 1 week. Also reports intermittent dry cough. Also reports bloody nose yesterday. Denies any fever, chills, nausea, vomiting, diarrhea. Has tried all some, NyQuil and Mucinex once. Take Zyrtec daily. Related Data Home Medications ?Medication ?Instructions ?Recorded ?Confirmed ?Last Taken ?Type estradiol-norethindrone acet 1 1 tablet PO DAILY 11/04/19 12/23/23 Unknown History mg-0.5 mg tablet vortioxetine 10 mg tablet 10 mg PO DAILY 06/08/22 12/23/23 Unknown History (Trintellix) Allergies Allergy/AdvReac Type Severity Reaction Status Date / Time No Known Allergies Allergy Verified 08/18/24 08:28 Review of Systems Review of Systems: All systems reviewed & are unremarkable except as noted in HPI and below Constitutional: Constitutional: Denies body ache(s), Denies chills, Denies fatigue, Denies fever(s), Reports headache(s), Denies malaise and Denies weakness Eyes: Eyes: Denies blurry vision, Denies itchy eyes and Denies loss of vision ENT: Denies otalgia, Denies headache(s), Reports nasal congestion, Denies sinus pain, Reports sinus pressure and Reports sore throat Cardiovascular: Cardiovascular: Denies chest pain, Denies irregular heart rhythm and Denies dyspnea Respiratory: Respiratory: Reports cough and Denies dyspnea Gastrointestinal: Gastrointestinal: Denies abdominal pain, Denies diarrhea, Denies nausea and Denies vomiting Musculoskeletal: Musculoskeletal: Denies back pain, Denies myalgias and Denies arthralgias Integumentary/Breasts: Skin/Breast: Denies pruritus and Denies rash Neurologic: Denies headache(s), Denies loss of vision and Denies weakness Psychiatric: Psychiatric: Reports no additional psychiatric complaints Endocrine: Endocrine: Denies fatigue Allergic/Immunologic: Allergic/Immunologic: Denies itchy eyes PMFSH Past Medical History Medical History Heart murmur pediatric Resolved asthma pediatric condition Depression Anxiety Family History Family History Father Family history of emphysema Family history of mental disorder Family history of alcoholism Family history of arthritis Family history of chronic obstructive pulmonary disease Family history of atrial fibrillation Mother Family history of osteoporosis Family history of migraine headaches Hypertension Grandparent Cerebrovascular accident Family history of malignant neoplasm Social History Social History Years smoked: 24 Smoking status: Former smoker Tobacco type: cigarettes Second hand tobacco smoke exposure: No Smoking end date: 06/20/19 Alcohol intake: current Alcohol use details: socially Substance use: never Substance use type: does not use Living arrangements: with family Occupation/Education: occupation 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 There is no relevant family history pertinent to the presenting complaint. Exam Const: General: cooperative, healthy appearing, comfortable, no acute distress and well nourished Nutritional Appearance: well nourished Orientation/consciousness: patient oriented x3 Limitations: no limitations HENMT: Head: normal to inspection, normocephalic and atraumatic Ears: hearing grossly normal bilaterally, external ears normal, TM's normal bilaterally, EAC's normal and no periauricular adenopathy Face/Nose/Sinus: Normal external nose present, Abnormal mucous membranes and turbinates present erythematous bilateral and diffuse, normal facial exam, face symmetric and Facial tenderness on exam of face and sinuses Face and sinus: normal facial exam and face symmetric Mouth: Yes Normal oral and palatal mucosa present, Yes lip normal, Yes tongue normal, Yes Normal salivary glands and ducts present, Yes oropharynx normal and Yes moist mucous membranes Teeth and gingiva: dentition normal Throat: tonsils normal, uvula midline, posterior oropharynx abnormal erythema and postnasal drainage Eyes: General: appearance normal, both eyes and all related structures Alignment and Position: alignment normal and position normal Periorbital: periorbital findings normal Eyelids: eyelids normal Pupils: Equal, round and reactive pupils present Neck: Neck: normal visual inspection, full ROM, no lymphadenopathy and supple Chest: Chest palpation & inspection: normal inspection of the chest and normal palpation of entire chest wall Resp: Effort & Inspection: normal respiratory effort and able to speak in complete sentences Auscultation: clear to auscultation bilaterally, no crackles, no rales, no rhonchi and no wheezes Cardio: Rate: regular rate Rhythm: regular rhythm Heart sounds: S1 normal heart sound present and S2 normal heart sound present GI: Inspection: normal to inspection Skin: General skin exam: normal color and no rashes or lesions noted Neuro: General: patient oriented x3 and moves all extremities Cranial nerves: Yes Equal, round and reactive pupils present Speech: normal speech Gait exam (Neuro): Normal gait present Extrem: General: normal to inspection, full ROM and no edema Psych: Appearance: grossly normal and well kempt Mental Status: mental status grossly normal Speech and movement: Normal speech and movement present Affect: normal affect Attitude: cooperative Thought process: Normal thought process present Course Course Emergency Course: Discharge instructions reviewed with patient, as well as provided in writing per nursing staff. The instructions also include specific and strict return/GO TO THE ER as well as f/u information. All questions have been answered, and the patient deny any further questions with discharge and discharge plan. Portions of this record may have been created with voice recognition software Level of Care: Express Care Visit Vital Signs Vital signs: Vital Signs Temperature 35.6 C L 08/18/24 08:39 Pulse Rate 77 08/18/24 08:39 Respiratory Rate 16 08/18/24 08:39 Blood Pressure 114/87 08/18/24 08:39 Pulse Oximetry 99 08/18/24 08:39 Oxygen Delivery Room Air 08/18/24 08:39 Temperature 35.6 C L 08/18/24 08:39 Pulse Rate 77 08/18/24 08:39 Respiratory Rate 16 08/18/24 08:39 Blood Pressure 114/87 08/18/24 08:39 Pulse Oximetry 99 08/18/24 08:39 Oxygen Delivery Room Air 08/18/24 08:39 Reviewed MDM - URI/Sore Throat MDM Narrative Medical decision making narrative: 44-year-old female with congestion and sore throat. Discussed saline spray for dry nose and antibiotic it is for sinus infection. Pt well hydrated appearing, in no respiratory distress, hemodynamically stable. Recommend supportive care. The patient is stable at time of discharge the clinical impression was discussed and the patient was given the opportunity to ask questions, which were addressed as completely as possible given the information available at present. Anticipatory guidance and return to care precautions were discussed and the importance of primary care follow-up was stressed and encouraged. The patient voiced understanding of the plan, indications to return, and the need for follow-up. Differential diagnosis considered: Castañeda virus, strep pharyngitis, allergic rhinitis, upper respiratory tract infection, sinusitis, rhinosinusitis, nasopharyngitis. viral pharyngitis, otitis media, otitis externa, otitis effusion, foreign body, cerumen impaction, viral syndrome, and influenza.? Exam findings show no acute concerns or changes; patient is non-toxic appearing and is in no distress.? Patient is appropriate for outpatient treatment and follow- up.? Medical Records Attestation: I reviewed the patient's medical records. Lab Data Attestation: I reviewed the patient's lab results. Labs: Lab Results 08/18/24 Range/Units 09:03 POC Grp A Strep Screen Negative (Negative) Discharge Plan Discharge Clinical Impression: Sinusitis Qualifiers: Sinusitis location: pansinusitis Chronicity: acute Recurrence: non-recurrent Qualified Code(s): J01.40 - Acute pansinusitis, unspecified Patient Disposition: Home, Self-Care Condition: Stable Instructions: Sinusitis (ED) Additional Instructions: Take antibiotics until completed. Symptomatic treatment of a sinus infection aims to relieve symptoms. These treatments do not shorten the duration of illness. Nonprescription pain medications, such as acetaminophen (eg, Tylenol) or ibuprofen (eg, Motrin, Advil), are recommended for pain. Flushing the nose and sinuses with a saline solution several times per day has been proven to decrease pain associated with congestion and shorten the duration of symptoms. Nasal steroids (such as Flonase, 2 sprays in each nostril daily) can help to reduce swelling inside the nose, usually within two to three days. These drugs have few side effects and relieve symptoms in most people. Oral decongestants (pseudoephedrine and phenylephrine) may be helpful if you have associated symptoms of ear pain or fullness. Nasal decongestant sprays, including oxymetazoline (Afrin) and phenylephrine (Jason-Synephrine), can be used to temporarily treat congestion. However, these sprays should not be used for more than two to three days due to the risk of rebound congestion (when the nose becomes congested constantly unless the medication is used repeatedly), possible addiction, and long-term consequences of frequent use, including persistent nasal dryness and crusting, which is very difficult to treat once it has developed. Medications to thin secretions (such as guaifenesin) may help to clear mucus. Please follow-up with your primary care doctor in the next 1-2 days. If you cannot follow-up with your primary care doctor please go to the ED for any urgent issues. If you have any worsening of symptoms or any other concerns please go to the ED immediately. Patient Language: Urdu Prescriptions: New amoxicillin-pot clavulanate 875-125 mg tablet 1 tablet PO Q12H 10 Days Qty: 20 0RF No Action Trintellix 10 mg tablet 10 mg PO DAILY estradiol-norethindrone acet 1-0.5 mg tablet 1 tablet PO DAILY ibuprofen 600 mg tablet 600 mg PO TID PRN (Reason: pain) Qty: 20 0RF acetaminophen 500 mg capsule 1,000 mg PO Q6H PRN (Reason: pain) Qty: 20 0RF Follow-up/Referrals: Bijal,Alannah Kelsey MD [Primary Care Provider] - 3 Days Stand Alone Forms: Work/School Release IP Time of Disposition: 09:14
[2024-08-18 08:39] VITALS: BP 114/87; PULSE 77; RESP 16; TEMP 35.6; O2SAT 99
[2024-08-18 09:05] LABS: EDSTREPNEGPOS1 Negative (Negative)
== END 2024-08-18 09:20 | disposition home or self-care (01) ==
PROVIDERS: Emergency Provider Nurse Practitioner Family; PCP Family Medicine Sports Medicine
DX: J01.40 Acute pansinusitis, unspecified (principal); Z87.891 Personal history of nicotine dependence
CPT/HCPCS: 87880; 99213; G0463

== ENCOUNTER 2025-06-13 10:12 | Emergency (ER) | payer OTHER, SELFPAY ==
--- OUTSIDE RECORDS SUMMARY | 2025-06-13 10:14 | XMS_ITS | Encounter Summary ---
Author Organization [facility] Address [address] [place] [address] Care Team Providers Care Management Supervisor Name Role Phone Alannah Appiah MD Unavailable + [phone] Alannah Appiah MD Primary Care Provider [phone] Encounter Details Date Type Department Care Team (Late st Contact Info) Description 05/27/2023 MyChart Message Enc [facility] Medical [facility] Family and Sports Medicine [place] [address] [facility] Provider michael Social History Tobacco Use Types Packs/Day Years Used Date Smoking Tobacco: Former Cigarettes 1 24 0 05/04/1995 - 05/04/2019 Smokeless Tobacco: Never Alcohol Use Standard Drinks/Week Comments Yes 0 (1 standard drink = 0.6 oz pur e alcohol) social PHQ-2 Answer Date Recorded Patient Health Questionnaire-2 Score 0 03/07/2023 Comments No Sex and Gender Information Value Date Recorded Sex Assigned at Female 06/07/2025 10:01 AM CDT Legal Sex Female 1:10 PM CDT Gender Identity Female 09/29/2021 8:58 AM 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 Sexual Orientation Straight 09/29/2021 8: 58 AM GREEN CHAIN PULLER documented as of this encounter Plan of Treatment Upcoming Encounters Date Type Department Care Team (Late st Contact Info) Description 07/01/2025 10:40 AM CDT Office Visit [facility] Medical Group Multispecialty Care - [facility] [address] [place] [address] Alannah Appiah MD [address] [place] [address] Huong Marino PA [address] [place] [address] documented as of this encounter Visit Diagnoses Not on filedocumented in this encounter Additional Health Concerns Assessment Noted Time PHQ-9 Depression Total Score: 2 03/07/20 23 11:08 AM CDT documented as of this encounter Care Teams Management Supervisor Relationship Specialty Start Date End Date Alannah Appiah MD [address] [place] [address] PCP - General FAMILY PRACTICE 03/03/20 Alannah Appiah MD [address] [place] [address] Physician FAMILY PRACTICE 02/12/20 documented as of this encounter
--- OUTSIDE RECORDS SUMMARY | 2025-06-13 10:14 | XMS_ITS | Clinical Summary ---
Author Organization [facility] Address [address] [place] [address] Care Team Providers Care Director Of Group Sales Name Role Phone Alannah Appiah MD Unavailable + [phone] Alannah Appiah MD Primary Care Provider [phone] Allergies No known active allergies Medications fexofenadine (ZENA ALLERGY) 180 MG tabletIndication s:Urticaria of entire body Take 1 tablet (180 mg total) by mouth daily. 90 tablet 3 1 Active Multiple Vitamin (MULTIVITAMIN ADULT) Tab 1 Active probiotic (FLORAJEN3) Cap capsule Take 1 capsule by mouth 3 (three) times daily with meals. Active TRINTELLIX 10 MG tabletIndication s:Anxiety TAKE 1 TABLET(10 MG) BY MOUTH DAILY 90 tablet 1 5 Active semaglutide-weig ht management (WEGOVY) 1.7 mg/dose injection (PEN)Indications :Weight Loss Inject 1.7 mg into the skin once a week. Indications: Weight Loss 3 mL 5 5 Active AUROVELA FE 09/21 1-20 MG-MCG tablet Take 1 tablet by mouth daily. 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 Medical Group Family and Sports Medicine [address] [address] Alannah Appiah MD Physical (Annual Physical Exam/) 06/07/2025 Travel from Last 3 Months Immunizations Immunization Administration Dates Next Due Influenza (Generic) 06/12/2021 Influenza Adult (Generic) 06/28/2020 MODERNA COVID-19 (12+) MRNA, LNP-S, PF, 100 MCG/ 0.5 ML DOSE 07/29/2021,11/01/2020,10/04/2020 Family History Medical History Relation Comments No Known Problems Brother Alcohol Abuse Father COPD Father Cancer Father lung Depression Father No Known Problems Maternal Aunt No Known Problems Maternal Grandfather Heart Disease Maternal Grandmother No Known Problems Maternal Uncle Cancer Mother Hypertension Mother Miscarriages / Stillbirths Mother No Known Problems Paternal Aunt No Known Problems Paternal Grandfather No Known Problems Paternal Grandmother No Known Problems Paternal Uncle No Known Problems Sister Relation Status Comments Brother Father Maternal Aunt Maternal Grandfather Maternal Grandmother Maternal Uncle Mother Paternal Aunt Paternal Grandfather Paternal Grandmother Paternal Uncle Sister Social History Tobacco Use Types Packs/Day Years Used Date Smoking Tobacco: Former Cigarettes 1 24 0 05/04/1995 - 05/04/2019 Smokeless Tobacco: Never Tobacco Cessation:Counseling Given: No Alcohol Use Standard Drinks/Week Comments Yes 0 (1 standard drink = 0.6 oz pur e alcohol) social PHQ-2 Answer Date Recorded Patient Health Questionnaire-2 Score 0 06/07/2025 Comments No Sex and Gender Information Value Date Recorded Sex Assigned at Female 06/07/2025 10:01 AM CDT Legal Sex Female 1:10 PM CDT Gender Identity Female 09/29/2021 8:58 AM MORTGAGE LENDER Sexual Orientation Straight 09/29/2021 8: 58 AM MORTGAGE LENDER Last Filed Vital Signs Vital Sign Reading Time Taken Comments Blood Pressure 135/89 06/07/2025 10:02 AM CDT Pulse 67 06/07/2025 10:02 AM CDT Temperature 36.7 C (98 F) 06/07/2025 10:02 AM CDT Respiratory Rate 16 06/07/2025 10:02 AM CDT Oxygen Saturation 100% 06/07/2025 10:02 AM CDT Inhaled Oxygen Concentration - - Weight 65.3 kg (144 lb) 06/07/2025 10:02 AM CDT Height 168.9 cm (5' 6.5) 06/07/2025 10:02 AM CD T Body Mass Index 22.89 06/07/2025 10:02 AM CDT Plan of Treatment Upcoming Encounters Date Type Department Care Team (Late st Contact Info) Description 07/01/2025 10:40 AM CDT Office Visit [facility] Medical Group Multispecialty Care - [facility] [address] [place] [id number] Alannah Appiah MD [address] [place], [place] [address] [place] [address] Huong Marino PA [address] [place] [address] Health Maintenance Due Date Last Done Comments Cervical Cancer Screening Balbir webber Smear (Age 30 to 64) Every 3 Years 1979 Colorectal Cancer Screening Colonoscopy (10 Years) 1979 DTaP, Tdap and Td Vaccines ( 1 - Tdap) 1998 Hepatitis B Vaccines (1 of 3 - 19+ 3-dose series) 1998 Cervical Cancer Screening Pa p with HPV Testing (Age 30 to 64) Every 5 Years 2009 Cervical Cancer Screening wi th HPV 2009 COVID-19 Vaccine (2024-2 6 season) 2025 07/29/2021, 11/01/2020, 10/04/2020 Influenza Adult (#1) 2025 06/12/2021, 06/28/2020 Mammogram Screening 11/12/2025 11/13/2023, 06/06/2022 Annual Physical 06/07/2026 06/07/2025, 04/21/2024, 03/07/2023 Hepatitis C Completed 03/07/2023 PHQ-2 (Physician [place]) Completed 06/07/2025 Meningococcal B Vaccine Aged Out No l onger eligible based on patient's age to complete this topic Meningococcal Vaccine Aged Out No billy meliza eligible based on patient's age to complete this topic Pneumococcal Vaccine: Pediatrics (0 to 5 Years) and At-Risk Patients (6 to 49 Years) Aged Out No longer eligible b ased on patient's age to complete this topic RSV Immunizations Under 20 Months Aged Out No longer eligible b ased on patient's age to complete this topic Procedures Procedure Name Priority Date/Time Associated Diagnosis Comments MAMMOGRAM GENERIC (SCAN ORDER) 11/13/2023 HEPATITIS PANEL,ACUTE Routine 03/07/2023 11:25 AM CDT Annual physical exam from Last 3 Months or Most Recently Relevant to Health Maintenance Results * MAMMOGRAM GENERIC (SCAN ORDER) (11/13/2023) Anatomical Region Laterality Modality Other 11/13/2023 [facility] Scanned SCANNING Final Resu lt * HEPATITIS PANEL,ACUTE (03/07/2023 11:25 AM CDT) HEPATITIS B SURFACE AG NON-REACT LINDA NON-REACT LINDA 03/07/2023 9:42 PM CDT [facility] Comment:HBsAg NOT DETECTED. HEP B CORE IGM NON-REACT LINDA NON-REACT LINDA 03/07/2023 9:42 PM CDT [facility] Comment: IgM ANTI HBc NOT DETECTED. DOES NOT EXCLUDE THE POSSIBILITY OF EXPOSURE TO OR INFECTION WITH HBV. NO RETEST REQUIRED. HIGH DOSES OF BIOTIN MAY INTERFERE WITH THIS TEST RESULT. CORRELATION TO CLINICAL HISTORY AND PRESENTATION RECOMMENDED. HAV IGM NON-REACT LINDA NON-REACT LINDA 03/07/2023 9:42 PM CDT [facility] Comment: IgM ANTI HAV NOT DETECTED. DOES NOT EXCLUDE THE POSSIBILITY OF EXPOSURE TO OR INFECTION WITH HAV. LEVELS OF IgM ANTI HAV MAY BE BELOW THE CUTOFF IN EARLY INFECTION. HEPATITIS C AB NON-REACT LINDA NON-REACT LINDA 03/07/2023 9:42 PM CDT [facility] Comment: ANTIBODIES TO HCV NOT DETECTED. DOES NOT EXCLUDE THE POSSIBILITY OF EXPOSURE TO HCV. 03/07/2023 11:2 5 AM CDT Alannah Appiah MD LABORATORY Final Result Performing Organization Address City/State/[facility] Co de Phone Number [facility] [address] [place] [address], [id number] from Last 3 Months or Most Recently Relevant to Health Maintenance Insurance Care Teams Director Of Group Sales Relationship Specialty Start Date End Date Alannah Appiah MD [address] [place] [address] PCP - General FAMILY PRACTICE 03/03/20 Alannah Appiah MD [address] [place] [address] Physician FAMILY PRACTICE 02/12/20
--- OUTSIDE RECORDS SUMMARY | 2025-06-13 10:14 | XMS_ITS | Encounter Summary ---
Author Organization [facility] Address [address] [place] [address] Care Team Providers Care Clinic Physician Director Name Role Phone Alannah Appiah MD Unavailable [phone] Alannah Appiah MD Primary Care Provider [phone] Encounter Details Date Type Department Care Team (Late st Contact Info) Description 05/04/2020 Prep for Procedure [facility]-Ad[facility] [address] [place] [address] Rick Rashid MD [address] [place], [place] [id number] Social History Tobacco Use Types Packs/Day Years Used Date Smoking Tobacco: Former Cigarettes 1 24 0 05/04/1995 - 05/04/2019 Smokeless Tobacco: Never Alcohol Use Standard Drinks/Week Comments Yes 0 (1 standard drink = 0.6 oz pur e alcohol) social Comments No Sex and Gender Information Value Date Recorded Sex Assigned at Female 06/07/2025 10:01 AM CDT Legal Sex Female 1:10 PM CDT Gender Identity Female 09/29/2021 8:58 AM BULLARD OPERATOR Sexual Orientation Straight 09/29/2021 8: 58 AM BULLARD OPERATOR COVID-19 Exposure Response Date Recorded In the last month, have you been in contact with someone who was confirmed or suspected to have Coronavirus / COVID-19? No / Unsure 05/04/2020 10:29 AM CDT documented as of this encounter Plan of Treatment Upcoming Encounters Date Type Department Care Team (Late st Contact Info) Description 07/01/2025 10:40 AM CDT Office Visit [facility] Medical Group Multispecialty Care - [facility] [address] [facility] [place] [address] Alannah Appiah MD [address] [place] [address] Huong Marino PA [address] [place] [address] documented as of this encounter Results * PRE-SURGICAL/PRE-PROCEDURE CORONAVIRUS (COVID 19) (05/09/2020 9:28 AM CDT) CORONAVIRUS SARS COV 2 PCR (RESP) NOT DETECTED NOT DETECTED 05/10/2020 3:20 PM CDT [facility] Comment: A Not Detected (negative) test result for this test means that SARS- CoV-2 RNA was not present in the specimen above the limit of detection. A negative result does not rule out the possibility of COVID-19 and should not be used as the sole basis for treatment or patient management decisions. If COVID-19 is still suspected, based on exposure history together with other clinical findings, re-testing should be considered in consultation with public health authorities. Laboratory test results should always be considered in the context of clinical observations and epidemiological data in making a final diagnosis and patient management decisions. Please review the Fact Sheets and FDA authorized labeling available for health care providers and patients using the following websites: https://www.[employer]/home/Covid-19/HCP/NAAT/fact-sheet2 https://www.[employer]/home/Covid-19/Patients/NAAT/ fact-sheet2 This test has been authorized by the FDA under an Emergency Use Authorization (EUA) for use by authorized laboratories. Due to the current public health emergency, [employer] is receiving a high volume of samples from a wide variety of swabs and media for COVID-19 testing. In order to serve patients during this public health crisis, samples from appropriate clinical sources are being tested. Negative test results derived from specimens received in non-commercially manufactured viral collection and transport media, or in media and sample collection kits not yet authorized by FDA for COVID-19 testing should be cautiously evaluated and the patient potentially subjected to extra precautions such as additional clinical monitoring, including collection of an additional specimen. Methodology: Nucleic Acid Amplification Test (NAAT) includes PCR or TMA Additional information about COVID-19 can be found at the [employer] website: www.[employer]/Covid19. Test performed at [facility] [address] [place] [address] Director: LAURA ALFONSO DO,MPH NASOPHARYNGEAL SWAB / Unknown 05/09/2020 9:28 AM CDT us Rick Rashid MD MICROBIOLOGY - GENERAL ORDER ANGI Final Result [facility] [id number] [place] [id number] documented in this encounter Visit Diagnoses Diagnosis Preop examination- Primary Preoperative examination, unspecified documented in this encounter Additional Health Concerns Infection Onset Date Last Indicated Resolved Time COVID-19 Rule Out 05/09/2020 05/09/2020 05/10/2020 3:21 PM CDT documented as of this encounter Care Teams Clinic Physician Director Relationship Specialty Start Date End Date Alannah Appiah MD [address] [facility] [place] [address] PCP - General FAMILY PRACTICE 03/03/20 Alannah Appiah MD [address] [place] [address] Physician FAMILY PRACTICE 02/12/20 documented as of this encounter
--- OUTSIDE RECORDS SUMMARY | 2025-06-13 10:14 | XMS_ITS | Encounter Summary ---
Author Organization [facility] Address [address] [place] [address] Care Team Providers Care Lead Process Engineer Name Role Phone Alannah Appiah MD Unavailable [phone] Alannah Appiah MD Primary Care Provider + Encounter Details Date Type Department Care Team (Late st Contact Info) Description 03/29/2023 MyChart Message Enc [facility] Medical Group Family and Sports Medicine - [place] [address] [place] [address] Alannah Appiah MD [address] [facility] [address] [place] [address] Weight loss injectable Social History Tobacco Use Types Packs/Day Years [...] CDT Gender Identity Female 09/29/2021 8:58 AM 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 Sexual Orientation Straight 09/29/2021 8: 58 AM 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 documented as of this encounter Plan of Treatment Upcoming Encounters Date Type Department Care Team (Late st Contact Info) Description 07/01/2025 10:40 AM CDT Office Visit [facility] Medical Group Multispecialty Care - [facility] [address] [facility] [place] [address] Alannah Appiah MD [address] [place] [address] Huong Marino PA [address] [place] [address] documented as of this encounter Visit Diagnoses Not on filedocumented in this encounter Additional Health Concerns Assessment Noted Time PHQ-9 Depression Total Score: 2 03/07/20 23 11:08 AM CDT documented as of this encounter Care Teams Lead Process Engineer Relationship Specialty Start Date End Date Alannah Appiah MD [address] [place] [address] PCP - General FAMILY PRACTICE 03/03/20 Alannah Appiah MD [address] [place] [address] Physician FAMILY PRACTICE 02/12/20 documented as of this encounter
[2025-06-13 10:23] VITALS: BP 136/86; PULSE 75; RESP 18; TEMP 36.6; O2SAT 98
--- NOTE | 2025-06-13 11:17 | ED.URI ---
HPI - URI/Sore Throat General Chief Complaint: Upper Respiratory Infection Stated Complaint: URI Time Seen by Provider: 06/13/25 11:08 Source: patient and RN notes reviewed Mode of arrival: ambulatory Limitations: no limitations History of Present Illness HPI Narrative: Patient presents today complaining of 4 day history of cough, chills, nasal congestion, fatigue, sore throat, headache. Denies shortness of breath or known sick contacts. She has tried Tylenol Sinus, Mucinex, Benadryl without much improvement. No history of asthma or COPD. She is a nonsmoker. Declines testing. States, ?I think I have bronchitis. ? Related Data Home Medications ?Medication ?Instructions ?Recorded ?Confirmed ?Last Taken ?Type vortioxetine 10 mg tablet 10 mg PO DAILY 06/08/22 12/23/23 Unknown History (Trintellix) norethindrone 1 mg-ethinyl tablet 06/13/25 Unknown History estradiol 20 mcg (21)-iron 75 mg (7) tablet (Aurovela Fe 1-20 (28)) semaglutide (weight loss) 1.7 mg subcut 06/13/25 Unknown History mg/0.75 mL subcutaneous pen injector (Wegovy) Allergies Allergy/AdvReac Type Severity Reaction Status Date / Time No Known Allergies Allergy Verified 06/13/25 10:24 COUNTS INCLUDE 234 BEDS AT [facility] Past Medical History Medical History Heart murmur pediatric Resolved asthma pediatric condition Depression Anxiety Family History Family History Father Family history of emphysema Family history of mental disorder Family history of alcoholism Family history of arthritis Family history of chronic obstructive pulmonary disease Family history of atrial fibrillation Mother Family history of osteoporosis Family history of migraine headaches Hypertension Grandparent Cerebrovascular accident Family history of malignant neoplasm Social History Social History Years smoked: 24 Smoking status: Former smoker Tobacco type: cigarettes Second hand tobacco smoke exposure: No Smoking end date: 06/20/19 Alcohol intake: current Alcohol use details: socially Substance use: never Substance use type: does not use Living arrangements: with family Occupation/Education: occupation Additional 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 Please see nursing chart for further information. There is no relevant family history pertinent to the presenting complaint Exam Narrative: GENERAL: Well-appearing, well-nourished, and in no acute distress. HEAD: Normocephalic, atraumatic. EYES: EOMI. No redness or drainage. Conjunctivae normal. ENT: Mucous membranes pink and moist. Nares congested. No rhinorrhea. TMs normal bilaterally. Throat normal. Uvula midline. NECK: Normal AROM. Supple. No lymphadenopathy. CHEST: No respiratory distress. Clear to auscultation. HEART: Regular rate and rhythm. No murmur appreciated. EXTREMITIES: Normal range of motion. No edema. SKIN: Warm, dry, no rash. Capillary refill normal. Normal skin turgor. NEURO: No focal deficits. Alert and oriented x3. Gait steady. PSYCH: Normal affect. No signs of depression or anxiety. Course Course Level of Care: Express Care Visit Vital Signs Vital signs: Vital Signs Temperature 97.9 F 06/13/25 10:23 Pulse Rate 75 06/13/25 10:23 Respiratory Rate 18 06/13/25 10:23 Blood Pressure 136/86 06/13/25 10:23 Pulse Oximetry 98 06/13/25 10:23 Oxygen Delivery Room Air 06/13/25 10:23 Temperature 97.9 F 06/13/25 10:23 Pulse Rate 75 06/13/25 10:23 Respiratory Rate 18 06/13/25 10:23 Blood Pressure 136/86 06/13/25 10:23 Pulse Oximetry 98 06/13/25 10:23 Oxygen Delivery Room Air 06/13/25 10:23 Review MDM - URI/Sore Throat MDM Narrative Medical decision making narrative: Patient presents today complaining of 4 day history of cough, chills, nasal congestion, fatigue, sore throat, headache. Denies shortness of breath or known sick contacts. She has tried Tylenol Sinus, Mucinex, Benadryl without much improvement. Upon exam, patient has some mild nasal congestion, otherwise negative. She declines testing today. Will treat her bronchitis/upper respiratory symptoms with prednisone. She declines cough medicine or an albuterol inhaler. Vital signs stable. Patient agrees with plan. Anticipatory guidance given. Differential Diagnosis Differential diagnosis: Likely upper respiratory infection, otitis media, sinusitis, viral infection, bronchitis, influenza, pharyngitis and other (COVID-19) Critical Care Time Critical Care Time Critical Care Time: No Discharge Plan Discharge Clinical Impression: Bronchitis Patient Disposition: Home Condition: Stable Instructions: Upper Respiratory Infection (DC), Acute Bronchitis (ED) Additional Instructions: Your symptoms are likely due to a viral illness, which is not treated with antibiotics. Virus symptoms can last for up to 7-10days. Take Tylenol or ibuprofen for pain or fever. Take the prednisone as prescribed. Take Delsym for cough if needed. Rest and stay hydrated. Follow up with your PCP in 7 days if symptoms are not improving. Go to the ER immediately if you develop shortness of breath, difficulty swallowing, or any other concerning symptoms. Patient Language: Estonian Prescriptions: New prednisone 50 mg tablet 50 mg PO DAILY 5 Days Qty: 5 0RF No Action norethindrone-e.estradiol-iron [Aurovela Fe 1-20 (28)] 1 mg-20 mcg (21)/75 mg (7) tablet Wegovy 1.7 mg/0.75 mL pen injector SUBCUT Trintellix 10 mg tablet 10 mg PO DAILY Follow-up/Referrals: Bijal,Alannah Kelsey MD [Primary Care Provider] Time of Disposition: 11:17
== END 2025-06-13 11:19 | disposition home or self-care (01) ==
PROVIDERS: Emergency Provider Nurse Practitioner; PCP Family Medicine Sports Medicine
DX: J40 Bronchitis, not specified as acute or chronic (principal); F41.9 Anxiety disorder, unspecified; F32.A Depression, unspecified; Z87.891 Personal history of nicotine dependence
CPT/HCPCS: 99213; G0463

== ENCOUNTER 2025-06-18 09:17 | Outpatient (CLI) | payer OTHER, SELFPAY ==
--- NOTE | ~2025-06-18 | MM_ITS ---
EXAMINATION: MM screening alessandro BI w alma HISTORY: Screening TECHNIQUE: Craniocaudal and mediolateral oblique 3-D tomosynthesis images were obtained and synthetic 2-D images were generated. CAD analysis was submitted and interpreted. COMPARISON: 06/06/2022 BREAST PARENCHYMAL COMPOSITION: The breasts are extremely dense, which lowers the sensitivity of mammography. FINDINGS: There is no evidence of suspicious mass, calcification, or architectural distortion to suggest malignancy. There has been no suspicious interval change. IMPRESSION: 1. No mammographic evidence of malignancy. Recommend routine screening mammography in one year. BI-RADS Category 2: Benign finding(s) Reviewed, dictated and finalized at location Q. IMPRESSION: 1. No mammographic evidence of malignancy. Recommend routine screening mammogra phy in one year. BI-RADS Category 2: Benign finding(s)
== END 2025-06-18 09:18 | disposition home or self-care (01) ==
LOC: MICIMG 09:17
PROVIDERS: PCP Family Medicine Sports Medicine; Visit Provider Obstetrics & Gynecology
DX: Z12.31 Encounter for screening mammogram for malignant neoplasm of breast (principal)
CPT/HCPCS: 77063; 77067

== ENCOUNTER 2025-08-22 16:44 | Emergency (ER) | payer OTHER, SELFPAY ==
[2025-08-22 16:53] VITALS: BP 130/81; PULSE 75; RESP 18; TEMP 36.6; O2SAT 98
--- NOTE | 2025-08-22 17:00 | ED.URI ---
HPI - URI/Sore Throat General Chief Complaint: Upper Respiratory Infection Stated Complaint: URI patient presents to the [facility] with complaints of intermittent fatigue and malaise for the last 8 days. Patient noted initially at the beginning of symptoms did have a dry cough for a day which she took Delsym this completely resolved. Today noticed drainage into her chest and increased fatigue. also noted minimal sore throat over the last week. Worse today. denies any known fevers, chills, body aches, dizziness, headache, difficulty swallowing, shortness of breath, wheezing. History of bronchitis Related Data Home Medications ?Medication ?Instructions ?Recorded ?Confirmed ?Last Taken ?Type vortioxetine 10 mg tablet 10 mg PO DAILY 06/08/22 12/23/23 Unknown History (Trintellix) norethindrone 1 mg-ethinyl tablet 06/13/25 Unknown History estradiol 20 mcg (21)-iron 75 mg (7) tablet (Aurovela Fe 1-20 (28)) semaglutide (weight loss) 1.7 mg subcut 06/13/25 Unknown History mg/0.75 mL subcutaneous pen injector (Wegovy) Allergies Allergy/AdvReac Type Severity Reaction Status Date / Time No Known Allergies Allergy Verified 08/22/25 16:54 Review of Systems Constitutional: Constitutional: Reports as per HPI, Reports chills, Reports fatigue, Denies fever(s) and Denies weakness Eyes: Eyes: Reports no additional eye complaints ENT: Reports as per HPI, Denies vertigo, Denies dizziness, Reports nasal congestion and Reports sore throat Comments: nasal drainage and chest Cardiovascular: Cardiovascular: Reports no additional cardiovascular complaints Respiratory: Respiratory: Reports as per HPI, Reports chest congestion, Reports cough, Denies dyspnea and Denies wheezing Gastrointestinal: Gastrointestinal: Reports no additional gastrointestinal complaints Genitourinary: Genitourinary: Reports no additional female genitourinary complaints Musculoskeletal: Musculoskeletal: Reports as per HPI, Denies back pain and Denies myalgias Integumentary/Breasts: Skin/Breast: Reports as per HPI, Denies erythema, Denies rash and Denies skin ulcer Neurologic: Reports as per HPI, Denies vertigo, Denies dizziness, Reports headache(s) and Denies weakness Psychiatric: Psychiatric: Reports no additional psychiatric complaints Endocrine: Endocrine: Reports no additional endocrine complaints Hematologic/Lymphatic: Hematologic/Lymphatic: Reports no additional hematologic/lymphatic complaints Allergic/Immunologic: Allergic/Immunologic: Reports no additional allergic/immunologic complaints [facility] Past Medical History Medical History Heart murmur pediatric Resolved asthma pediatric condition Depression Anxiety Family History Family History Father Family history of emphysema Family history of mental disorder Family history of alcoholism Family history of arthritis Family history of chronic obstructive pulmonary disease Family history of atrial fibrillation Mother Family history of osteoporosis Family history of migraine headaches Hypertension Grandparent Cerebrovascular accident Family history of malignant neoplasm Social History Social History Years smoked: 24 Smoking status: Former smoker Tobacco type: cigarettes Second hand tobacco smoke exposure: No Smoking end date: 06/20/19 Alcohol intake: current Alcohol use details: socially Substance use: never Substance use type: does not use Living arrangements: with family Occupation/Education: occupation 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 care concerns: No Exam Const: General: healthy appearing and no acute distress Nutritional Appearance: well nourished Orientation/consciousness: patient oriented x3 Limitations: no limitations HENMT: Head: normal to inspection Ears: external ears normal and TM's normal bilaterally Face/Nose/Sinus: Normal external nose present and Normal nares present Face and sinus: normal facial exam and sinuses nontender Mouth: Yes Normal oral and palatal mucosa present, Yes lip normal and Yes moist mucous membranes Throat: posterior oropharynx abnormal ( minimal erythema with no edema or exudate) Neck: Neck: normal visual inspection and no lymphadenopathy Resp: Effort & Inspection: normal respiratory effort Auscultation: clear to auscultation bilaterally Cardio: Rate: regular rate Rhythm: regular rhythm Skin: General skin exam: normal color Rashes: no rashes Wounds: no wounds Neuro: General: patient oriented x3 Speech: normal speech Gait exam (Neuro): Normal gait present Psych: Mental Status: mental status grossly normal Affect: normal affect Attitude: cooperative Course Course Level of Care: Express Care Visit Vital Signs Vital signs: Vital Signs Temperature 97.9 F 08/22/25 16:53 Pulse Rate 75 08/22/25 16:53 Respiratory Rate 18 12/21/25 16:53 Blood Pressure 130/81 08/22/25 16:53 Pulse Oximetry 98 08/22/25 16:53 Oxygen Delivery Room Air 08/22/25 16:53 Temperature 97.9 F 08/22/25 16:53 Pulse Rate 75 08/22/25 16:53 Respiratory Rate 18 08/22/25 16:53 Blood Pressure 130/81 08/22/25 16:53 Pulse Oximetry 98 08/22/25 16:53 Oxygen Delivery Room Air 08/22/25 16:53 [facility] Narrative Medical decision making narrative: strep testing completed The patient was evaluated by myself in the [facility]. History is obtained from patient who is an independent historian and physical exam was performed. Available medical records were reviewed at this time. Exam findings show no acute concerns or changes; patient is non-toxic appearing and is in no distress. Patient is appropriate for outpatient treatment and follow-up. I have evaluated and discussed social determinants of health with the patient that could potentially impact subsequent diagnosis and treatment plans. Differential diagnosis and treatment plan were discussed with the patient. Patient agrees with discussion and after shared medical decision making agrees with plan of care. All questions were answered to the patient's satisfaction. Differential Diagnosis Differential Diagnosis: Influenza, sinusitis, upper respiratory infection, COVID, strep, pharyngitis Medical Records I have reviewed the following patient records and this information was taken into consideration when formulating the assessment and plan.: previous labs, previous ER visits, previous hospitalizations and previous clinic visits Lab Data [facility] Lab Attestation statement: I personally reviewed the patient's lab results. Discharge Plan Discharge Clinical Impression: Bronchitis Patient Disposition: Home Condition: Stable Instructions: Antibiotic Form, Acute Bronchitis (ED) Additional Instructions: you have been diagnosed with bronchitis, this is more commonly a viral illness. Taking medications to control your symptoms will help until your body gets rid of this virus. Antibiotics will not work to get you better sooner. Bronchitis does occasionally a post viral cough that is dry and hacking in nature that can last 6-8 weeks. Medication you can take to make you feel better: prednisone as directed. this medication can cause jitteriness or palpitations. If this happens You may stop this medication. albuterol inhaler every 4 hours as needed for cough, shortness of breath, or wheezing. Tessalon Perles/benzonatate for cough. These can be taken 3 times a day as needed. May also use [id number] medications like Mucinex, Sudafed, Flonase, Tylenol, and ibuprofen. If your symptoms worsen or last longer than 7-10 days follow-up with primary care provider or emergency room as needed. The rapid strep swab was negative today at [facility]. You will be notified in a few days if the culture comes back positive for strep, and appropriate antibiotics will be called in for him at that time. His symptoms are likely due to a viral illness, which is not treated with antibiotics. Viral symptoms can be present for up to 10-14 days. Take Tylenol or ibuprofen for fever or pain. Rest and stay hydrated. Follow up with your PCP in 10 days if symptoms are not improving, or sooner if symptoms are worsening. Patient Language: Malawian Prescriptions: New benzonatate 200 mg capsule 200 mg PO TID PRN (Reason: cough) Qty: 30 0RF codeine-guaifenesin [Guaifenesin AC] 10-100 mg/5 mL liquid 5 ml PO Q6H PRN (Reason: cough) Qty: 120 0RF methylprednisolone [Medrol (Min)] 4 mg tablets,dose pack See Rx Instructions .ROUTE .COMPLEX Qty: 21 0RF Rx Instructions: for 6 days albuterol sulfate [Ventolin HFA] 90 mcg/actuation HFA aerosol inhaler 2 puff inhalation QID PRN (Reason: shortness of breath or wheezing) Qty: 8.5 0RF No Action norethindrone-e.estradiol-iron [Aurovela Fe 1-20 (28)] 1 mg-20 mcg (21)/75 mg (7) tablet Wegovy 1.7 mg/0.75 mL pen injector SUBCUT Trintellix 10 mg tablet 10 mg PO DAILY Follow-up/Referrals: Bijal,Alannah Kelsey MD [Primary Care Provider] Time of Disposition: 17:08
[2025-08-22 17:10] LABS: EDSTREPNEGPOS1 Negative (Negative)
== END 2025-08-22 17:12 | disposition home or self-care (01) ==
PROVIDERS: Emergency Provider Nurse Practitioner Family; PCP Family Medicine Sports Medicine
DX: Z87.891 Personal history of nicotine dependence (principal); F41.9 Anxiety disorder, unspecified; F32.A Depression, unspecified
CPT/HCPCS: 87081; 87880; 99213; G0463